=== PATIENT | male | born 1980 | race Caucasian/White ===

== ENCOUNTER 2017-11-06 04:13 | Emergency (ER) | payer BC ==
[2017-11-06 04:21] VITALS: TEMP 97.9
--- NOTE | 2017-11-06 04:59 | ED ---
General Adult HPI - General Chief complaint: Anxiety Stated complaint: chest pain Time Seen by Provider: 11/06/17 04:18 Source: patient, RN notes reviewed Mode of arrival: ambulatory Limitations: no limitations - History of Present Illness Initial comments: 37-year-old male presents for evaluation of chest pain. Patient had several episodes of sharp left upper chest pain which lasted just seconds. Most recently patient's pain was at midnight which is 4 hours prior to presentation. Patient states he also had several episodes earlier in the day. Pain is currently resolved. No vomiting or diaphoresis. Patient states he has been drinking over the past 8 days, he is currently homeless living in a hotel. He states he's been drinking 5-6 beers nightly, tonight he just drank 1 beer. He has been dealing with anxiety, previously on Lexapro. Patient recently broke up with his girlfriend. Denies any suicidal thoughts. No cough, no fever, no abdominal pain. - Related Data Allergies Allergy/AdvReac Type Severity Reaction Status Date / Time No Known Allergies Allergy Verified 11/06/17 04:20 Review of Systems ROS Statement: Those systems with pertinent positive or pertinent negative responses have been documented in the HPI. ROS Other: All systems not noted in ROS Statement are negative. Past Medical History Past Medical History: No Reported History History of Any Multi-Drug Resistant Organisms: None Reported Past Surgical History: Tonsillectomy Past Psychological History: Anxiety Smoking Status: Current some day smoker Past Alcohol Use History: Daily Past Drug Use History: None Reported General Exam Limitations: no limitations General appearance: alert, in no apparent distress Head exam: Present: atraumatic, normocephalic Eye exam: Present: normal appearance, PERRL, EOMI ENT exam: Present: normal exam Neck exam: Present: normal inspection. Absent: tenderness, meningismus Respiratory exam: Present: normal lung sounds bilaterally. Absent: respiratory distress, wheezes, chest wall tenderness Cardiovascular Exam: Present: regular rate, normal rhythm GI/Abdominal exam: Present: soft. Absent: distended, tenderness, guarding Extremities exam: Present: normal inspection, full ROM, normal capillary refill. Absent: tenderness, pedal edema Neurological exam: Present: alert, oriented X3 Psychiatric exam: Present: normal affect, normal mood. Absent: suicidal ideation Skin exam: Present: warm, dry, intact. Absent: cyanosis, diaphoretic Course Vital Signs 11/06/17 04:16 Temperature 97.9 F Pulse Rate 73 Respiratory 16 Rate Blood Pressure 141/84 O2 Sat by Pulse 99 Oximetry EKG Findings - EKG Comments: EKG Findings:: EKG obtained at 433 shows normal sinus rhythm, ventricular rate of 75, AK interval 168, QRS duration 100, QTC 410, no ST segment elevation, nonspecific T-wave abnormality in the lateral precordium. Repeat EKG at 616 shows sinus bradycardia, rate of 55, AK interval 164, QRS duration 106, QTC 409 , no ST segment elevation normal T-wave morphology Medical Decision Making - Medical Decision Making 37-year-old male presenting with left upper anterior chest pain pain was sharp in nature. No typical central substernal chest pain. Patient admits he has been dealing with some anxiety secondary to recent breakup with his fiance and the fact it is currently homeless living in a hotel. EKG showed nonspecific T- wave abnormality with no ST segment elevation. Pain began 4 hours prior to arrival and he had several recurrences prior to that. Laboratory studies reveal normal white blood cell count, stable hemoglobin, d-dimer is negative. Electrolytes within normal limits. Troponin negative. CK is elevated at 687, patient receives IV hydration and Toradol in the emergency department. Patient has no suicidal ideation, however he is evaluated by EPS nurse and given outpatient resources and coping techniques. He will return with any worsening or changing symptoms. - Lab Data Result diagrams: 11/06/17 04:46 11/06/17 04:46 Lab Results 11/06/17 11/06/17 11/06/17 Range/Units 04:46 04:46 04:46 WBC 5.5 (3.8-10.6) k/uL RBC 5.22 (4.30-5.90) m/uL Hgb 16.8 (13.0-17.5) gm/dL Hct 47.6 (39.0-53.0) % MCV 91.2 (80.0-100.0) fL MCH 32.1 (25.0-35.0) pg MCHC 35.2 (31.0-37.0) g/dL RDW 16.4 H (11.5-15.5) % Plt Count 250 (150-450) k/uL Neutrophils % 54 % Lymphocytes % 34 % Monocytes % 6 % Eosinophils % 4 % Basophils % 1 % Neutrophils # 3.0 (1.3-7.7) k/uL Lymphocytes # 1.9 (1.0-4.8) k/uL Monocytes # 0.3 (0-1.0) k/uL Eosinophils # 0.2 (0-0.7) k/uL Basophils # 0.0 (0-0.2) k/uL Anisocytosis Slight PT (9.0-12.0) sec INR (<1.2) APTT (22.0-30.0) sec D-Dimer (<0.60) mg/L FEU Sodium 139 (137-145) mmol/L Potassium 3.6 (3.5-5.1) mmol/L Chloride 104 (98-107) mmol/L Carbon Dioxide 25 (22-30) mmol/L Anion Gap 10 mmol/L BUN 14 (9-20) mg/dL Creatinine 0.90 (0.66-1.25) mg/dL Est GFR (CKD-EPI)AfAm >90 (>60 ml/min/1.73 sqM) Est GFR (CKD-EPI)NonAf >90 (>60 ml/min/1.73 sqM) Glucose 91 (74-99) mg/dL Calcium 9.7 (8.4-10.2) mg/dL Magnesium 2.0 (1.6-2.3) mg/dL Total Bilirubin 1.3 (0.2-1.3) mg/dL AST 53 (17-59) U/L ALT 51 (21-72) U/L Alkaline Phosphatase 104 (38-126) U/L Total Creatine Kinase 787 H (55-170) U/L CK-MB (CK-2) 4.2 H* (0.0-2.4) ng/mL CK-MB (CK-2) Rel Index 0.5 Troponin I <0.012 (0.000-0.034) ng/mL Total Protein 7.0 (6.3-8.2) g/dL Albumin 4.6 (3.5-5.0) g/dL Lipase 53 (23-300) U/L Serum Alcohol <10 mg/dL 11/06/17 Range/Units 04:46 WBC (3.8-10.6) k/uL RBC (4.30-5.90) m/uL Hgb (13.0-17.5) gm/dL Hct (39.0-53.0) % MCV (80.0-100.0) fL MCH (25.0-35.0) pg MCHC (31.0-37.0) g/dL RDW (11.5-15.5) % Plt Count (150-450) k/uL Neutrophils % % Lymphocytes % % Monocytes % % Eosinophils % % Basophils % % Neutrophils # (1.3-7.7) k/uL Lymphocytes # (1.0-4.8) k/uL Monocytes # (0-1.0) k/uL Eosinophils # (0-0.7) k/uL Basophils # (0-0.2) k/uL Anisocytosis PT 12.3 H (9.0-12.0) sec INR 1.3 H (<1.2) APTT 24.6 (22.0-30.0) sec D-Dimer <0.17 (<0.60) mg/L FEU Sodium (137-145) mmol/L Potassium (3.5-5.1) mmol/L Chloride (98-107) mmol/L Carbon Dioxide (22-30) mmol/L Anion Gap mmol/L BUN (9-20) mg/dL Creatinine (0.66-1.25) mg/dL Est GFR (CKD-EPI)AfAm (>60 ml/min/1.73 sqM) Est GFR (CKD-EPI)NonAf (>60 ml/min/1.73 sqM) Glucose (74-99) mg/dL Calcium (8.4-10.2) mg/dL Magnesium (1.6-2.3) mg/dL Total Bilirubin (0.2-1.3) mg/dL AST (17-59) U/L ALT (21-72) U/L Alkaline Phosphatase (38-126) U/L Total Creatine Kinase (55-170) U/L CK-MB (CK-2) (0.0-2.4) ng/mL CK-MB (CK-2) Rel Index Troponin I (0.000-0.034) ng/mL Total Protein (6.3-8.2) g/dL Albumin (3.5-5.0) g/dL Lipase (23-300) U/L Serum Alcohol mg/dL Disposition Clinical Impression: Panic attack, Chest pain Disposition: HOME SELF-CARE Condition: Good Instructions: Generalized Anxiety Disorder (ED), Chest Pain (ED) Referrals: None,Stated [Primary Care Provider] - 1-2 days Karen Brantley MD [STAFF PHYSICIAN] - 1-2 days Time of Disposition: 06:30
[2017-11-06 05:07] LABS: Anisocytosis Slight; Basophils % (A) 1 %; Eosinophils # (A) 0.2 k/uL (0-0.7); Eosinophils % (A) 4 %; HCT 47.6 % (39.0-53.0); HGB 16.8 gm/dL (13.0-17.5); Lymphocytes # (A) 1.9 k/uL (1.0-4.8); Lymphocytes % (A) 34 %; MCH 32.1 pg (25.0-35.0); MCHC 35.2 g/dL (31.0-37.0); MCV 91.2 fL (80.0-100.0); Mean Platelet Volume 6.8; Monocytes # (A) 0.3 k/uL (0-1.0); Monocytes % (A) 6 %; Neutrophils % (A) 54 %; Platelet Count 250 k/uL (150-450); RBC 5.22 m/uL (4.30-5.90); RDW 16.4 % (11.5-15.5); WBC 5.5 k/uL (3.8-10.6)
--- NOTE | 2017-11-06 05:16 | XR ---
EXAM: XR Chest, 2 Views CLINICAL HISTORY: ITS.REASON XR Reason: Chest Pain TECHNIQUE: Frontal and lateral views of the chest. COMPARISON: None. FINDINGS: Lungs: Unremarkable. The lungs are clear. Pleural space: Unremarkable. No pneumothorax. Heart: Unremarkable. No cardiomegaly. Mediastinum: Unremarkable. Bones/joints: Unremarkable. IMPRESSION: Normal chest x-rays.
[2017-11-06 05:17] LABS: D-Dimer <0.17 mg/L FEU (<0.60)
[2017-11-06 05:19] LABS: ALT 51 U/L (21-72); AST 53 U/L (17-59); Albumin 4.6 g/dL (3.5-5.0); Alcohol <10 mg/dL; Alkaline Phosphatase 104 U/L (38-126); Anion Gap 10 mmol/L; Blood Urea Nitrogen 14 mg/dL (9-20); Calcium 9.7 mg/dL (8.4-10.2); Carbon Dioxide 25 mmol/L (22-30); Chloride 104 mmol/L (98-107); Glucose 91 mg/dL (74-99); Lipase 53 U/L (23-300); Potassium 3.6 mmol/L (3.5-5.1); Sodium 139 mmol/L (137-145); Total Bilirubin 1.3 mg/dL (0.2-1.3)
[2017-11-06 05:23] LABS: INR 1.3 (<1.2); Partial Thromboplastin Time 24.6 sec (22.0-30.0); Prothrombin Time 12.3 sec (9.0-12.0)
[2017-11-06 05:30] LABS: Creatine Kinase 787 U/L (55-170)
[2017-11-06 05:42] LABS: Troponin I <0.012 ng/mL (0.000-0.034)
[2017-11-06 05:45] LABS: Creatine Kinase MB 4.2 ng/mL (0.0-2.4)
[2017-11-06] MEDS ORDERED: KETOROLAC 30 MG/ML 1 ML VIAL IVP STA (06:23)
[2017-11-06] MEDS ORDERED: SODIUM CHLORIDE 0.9% 1,000 ML IV ONE (06:23)
[2017-11-06 07:23] VITALS: BP 120/74; PULSE 58; RESP 18
== END 2017-11-06 07:38 | disposition home or self-care (01) ==
LOC: EC 04:13
DX: R07.89 Other chest pain (principal); F41.0 Panic disorder [episodic paroxysmal anxiety]; F17.200 Nicotine dependence, unspecified, uncomplicated
CPT/HCPCS: 36415; 93005; 85379; 80053; 82550; 82553; 83690; 83735; 84484; 85025; 85610; 85730; 80320; 71046; 99284; 96374; 96361; J1885